=== PATIENT | male | born 1955 | race Caucasian/White ===

== ENCOUNTER → 2023-01-16 09:22 | Outpatient (CLI) | payer MEDICARE, OTHER, SELFPAY ==
--- NOTE | 2023-01-16 09:24 | DI.RAD.S_ITS ---
PROCEDURE: XR LUMBAR SPINE MIN 4V INDICATIONS: LOW BACK PAIN TECHNIQUE: 5 views of the lumbar spine were acquired, including bilateral oblique views. COMPARISON: [facility], MILENA, XR LUMBAR SPINE 2 OR 3 VIEWS, 06/06/2021, 15:23. [facility], MILENA, L-SPINE MINIMUM 4 VIEWS, 10/07/2012, 16:36. FINDINGS: Bones: 5 nonrib-bearing vertebrae are present. There is normal bony alignment. There is multilevel facet arthropathy, worse at L4-5 and L5-S1. Multilevel disc height loss with degenerative endplate changes and spurring is present. Most pronounced at L5-S1 No vertebral body compression fractures. No suspicious bony lesions. Soft tissues: Overlying bowel gas pattern is normal. No suspicious soft tissue calcifications. Oblique images: No definite pars defects. IMPRESSION: Multilevel degenerative changes of the lumbar spine. Dictated by: Mani Granados M.D. on 01/16/2023 at 10:51 Approved by: Mani Granados M.D. on 01/16/2023 at 10:53
--- NOTE | 2023-01-16 09:24 | DI.RAD.S_ITS ---
PROCEDURE: XR CERVICAL SPINE 4V OR 5V INDICATIONS: NECK PAIN TECHNIQUE: 5 views of the cervical spine acquired. COMPARISON: None. FINDINGS: Bones: No fractures or dislocations to the C6 level. The lateral masses of C1 are intact on the odontoid view. There are multilevel degenerative changes of the cervical spine with facet and uncovertebral arthropathy, disc height loss with degenerative endplate changes and spurring. Oblique images demonstrate osseous foraminal stenosis, most pronounced within the left mid to upper cervical spine. Soft tissues: No prevertebral soft tissue swelling. IMPRESSION: Multilevel degenerative changes of the cervical spine with osseous neural foraminal stenosis. Dictated by: Mani Granados M.D. on 01/16/2023 at 10:49 Approved by: Mani Granados M.D. on 01/16/2023 at 10:51
== END ==
PROVIDERS: PCP Internal Medicine; Referring Provider Anesthesiology; Visit Provider Anesthesiology
DX: M54.2 Cervicalgia (principal); M54.50 Low back pain, unspecified; M48.02 Spinal stenosis, cervical region; M47.812 Spondylosis without myelopathy or radiculopathy, cervical region; Z68.33 Body mass index [BMI] 33.0-33.9, adult
CPT/HCPCS: 72050; 72110; 99214

== ENCOUNTER → 2023-02-25 14:15 | Outpatient (CLI) | payer MEDICARE, OTHER, SELFPAY ==
--- NOTE | 2023-02-25 14:16 | DI.RAD.S_ITS ---
PROCEDURE: XR SHOULDER LT MIN 2V INDICATIONS: Shoulder pain TECHNIQUE: 3 views of the shoulder were acquired. COMPARISON: [facility], CR, XR SHOULDER MIN 2VW LT, 11/22/2016, 11:54. FINDINGS: Bones: There is no evidence for acute fracture or dislocation involving the left shoulder. There is moderate to severe AC and glenohumeral joint degenerative change present. There are 2 small loose bodies lateral to the humeral head. Adjacent soft tissues are otherwise unremarkable. IMPRESSION: 1. No evidence for acute osseous abnormality involving the left shoulder. 2. Moderate to severe AC joint degenerative change. 3. Moderate to severe glenohumeral joint degenerative change. 4. Two small loose bodies lateral to the humeral head. Dictated by: Mikel Ladd M.D. on 02/25/2023 at 15:00 Approved by: Mikel Ladd M.D. on 02/25/2023 at 15:04
--- NOTE | 2023-02-25 14:16 | DI.RAD.S_ITS ---
PROCEDURE: XR SHOULDER RT MIN 2V INDICATIONS: Shoulder pain TECHNIQUE: 3 views of the shoulder were acquired. COMPARISON: None. FINDINGS: Bones: No fractures or dislocations. No suspicious bony lesions. Visualized ribs appear intact. There is moderate to severe AC and glenohumeral joint degenerative change. Soft tissues: No suspicious soft tissue calcifications. IMPRESSION: 1. No evidence for acute osseous abnormality involving the right shoulder. 2. Moderate to severe AC joint degenerative change. 3. Moderate to severe glenohumeral joint degenerative change. 4. Small 1-2 mm loose body within the shoulder joint. Dictated by: Mikel Ladd M.D. on 02/25/2023 at 15:04 Approved by: Mikel Ladd M.D. on 02/25/2023 at 15:06
== END ==
PROVIDERS: PCP Internal Medicine; Referring Provider Anesthesiology; Visit Provider Anesthesiology
DX: M24.012 Loose body in left shoulder (principal); M24.011 Loose body in right shoulder; M25.511 Pain in right shoulder; M25.512 Pain in left shoulder; M47.812 Spondylosis without myelopathy or radiculopathy, cervical region; M54.2 Cervicalgia; G89.29 Other chronic pain
CPT/HCPCS: 73030; 99213

== ENCOUNTER 2023-03-13 14:19 | Outpatient (CLI) | payer MEDICARE, OTHER, SELFPAY ==
[2023-03-13] VITALS (8 sets, daily range): BP systolic 119–167; BP diastolic 76–94; PULSE 66–81; RESP 14–20; TEMP 36.6; O2SAT 97–100
--- NOTE | 2023-03-13 15:00 | DI.RAD.S_ITS ---
PROCEDURE: PAIN C/T FACET INJ/BLK 1ST L INDICATIONS: RADICULOPATHY COMPARISON: None. FINDINGS: Fluoroscopic spot filming was performed to verify placement of spinal needles at the left C3, C4 and C5 level(s), as labeled on the films. Appropriate location(s) of the needle tip(s) was confirmed by injection of iodinated contrast. IMPRESSION: Intra procedural examination demonstrating appropriate positions of the needles. Dictated by: Mani Granados M.D. on 03/13/2023 at 16:52 Approved by: Mani Granados M.D. on 03/13/2023 at 16:52
[2023-03-13] MEDS: MIDAZOLAM 2 MG/2 ML VIAL IV (15:01)
[2023-03-13] MEDS: BUPIVACAINE 0.5% (PF) 10 ML VIAL 5 ML INJ (15:04)
[2023-03-13] MEDS: iopamidoL 15 ML VIAL 3 ML INJ (15:05)
--- NOTE | 2023-03-13 16:42 | P.PCN_ITS ---
Date/Time/Diagnoses Date of procedure: 03/13/23 Time of procedure: 14:30 Procedure Notes Physician: Brandon Mcarthur Total Fluoroscopy time (seconds): 27 Total sedation minutes: 15 Procedure in detail & Post-procedure care: Left C3, 4, 5 Cervical Medial Branch Blocks Indications: Shola is presenting for treatment of cervical spondylosis with cervical pain. Procedure originally scheduled for right C3, 4, 5. Upon presentation today, patient notes left-sided pain is much more severe and requested to proceed with a left instead of a right procedure. Preoperative diagnosis: Cervical spondylosis Postoperative diagnosis: Same Pre-procedure History: Patient demonstrates today moderate to severe non- radicular neck pain without neurologic deficit aggravated by hyperextension yes Neck pain greater than arm pain? yes Patient today has tenderness over the suspected joint(s) yes History of post-traumatic injury? no Hypertrophic arthropathy yes Neck pain associated with suspected motion segment instability, hypermobility or pseudoarthrosis no Focused Examination: Ax3 Mood and affect are normal Vital Signs: VSS ASA: 2 Consent: Following review of allergies and potential side effects/complications, including, but not necessarily limited to, infection, allergic reaction, local tissue breakdown, stroke, temporary or permanent nerve injury, paralysis, and possible , the patient indicated that they understood and agreed to proceed.? An informed consent document was signed by the patient, witnessed by a nurse and placed in the patient's chart.? Additionally, other treatment options including medications and physical therapy were reviewed with the patient. All questions were answered. Site was then marked. Anesthesia: After review of previous anesthetic history and IV conscious sedation, the patient was deemed safe to proceed with today's procedure with IV conscious sedation. IV sedation was accomplished with midazolam 2 mg administered by the RN after order by Dr. Mcarthur. Sedation was titrated to patient comfort during the course of the procedure. Patient remained responsive to all verbal commands. Position: Prone Monitoring: NIBP, Pulse oximetry, 3 lead EKG Needle used: 22G 3.5 inch spinal needle Contrast: Isovue 300M Injectate: 0.5% bupivacaine 0.5 mL per site Procedure: The patient was brought into the procedure room and positioned into the prone position. Skin was prepped with a Chloraprep solution, allowed to air dry, and then draped in sterile fashion.? The left C3, 4, 5 facet joints were visually identified with fluoroscopy. Lidocaine 1% was used to anesthetize the skin over each target destination with a 25ga needle. A 22 ga, 3.5 inch spinal needle was advanced to the location of the medial branch at the waist of the articular pillar using intermittent fluoroscopy in the AP view. Isovue 300M contrast 0.2ml was injected at each level outlining the borders for each level in the AP/lateral views and confirmed in the foraminal view. There was no evidence of vascular or intrathecal uptake. The above injectate was slowly injected at each target destination. At the end of the procedure the needles were withdrawn and Band-Aids were applied for a dressing. Post Procedure: Patient was taken to the recovery and monitored. The patient was provided a Pain Log to continue to record the patient's response to the target- specific procedure prior to the patient's follow-up visit with the referring physician. Patient was stable upon discharge. Detailed post procedure instructions were provided. Patient was asked to call in the event of worsening pain, fever, weakness, numbness or bladder or bowel incontinence. Based on the medial branches blocked today, if the patient meets insurance criteria for radiofrequency, the treatment should result in the denervation of the left C3-4 and C4-5 facet joint nerves. We would expect to denervate a total of 2 facets during the radiofrequency ablation. Complications: None
== END 2023-03-13 15:39 | disposition home or self-care (01) ==
PROVIDERS: PCP Internal Medicine; Referring Provider Anesthesiology; Visit Provider Anesthesiology
DX: M47.812 Spondylosis without myelopathy or radiculopathy, cervical region (principal)
CPT/HCPCS: 64490; 64491; 99152; J2250

== ENCOUNTER 2023-04-17 12:29 | Outpatient (CLI) | payer MEDICARE, OTHER, SELFPAY ==
[2023-04-17] VITALS (8 sets, daily range): BP systolic 134–154; BP diastolic 77–105; PULSE 61–69; RESP 14–22; TEMP 36.4; O2SAT 98–100
--- NOTE | 2023-04-17 13:30 | DI.RAD.S_ITS ---
PROCEDURE: PAIN C/T FACET INJ/BLK 1ST L INDICATIONS: SPONDYLOSIS COMPARISON: [facility], , PAIN C/T FACET INJ/BLK 1ST L, 03/13/2023, 16:02. FINDINGS: Fluoroscopic spot filming was performed to verify placement of spinal needles at the left C3, C4 and C5 level(s), as labeled on the films. Appropriate location(s) of the needle tip(s) was confirmed by injection of iodinated contrast. IMPRESSION: Intra procedural examination demonstrating appropriate positions of the needles. Dictated by: Mani Granados M.D. on 04/17/2023 at 14:33 Approved by: Mani Granados M.D. on 04/17/2023 at 14:33
[2023-04-17] MEDS: MIDAZOLAM 2 MG/2 ML VIAL IV (13:35)
[2023-04-17] MEDS: iopamidoL 15 ML VIAL 3 ML INJ (13:41)
[2023-04-17] MEDS: LIDOCAINE 2% INJ MDV 20ML 5 ML INJ (13:41)
--- NOTE | 2023-04-17 15:25 | P.PCN_ITS ---
Date/Time/Diagnoses Date of procedure: 04/17/23 Time of procedure: 13:30 Procedure Notes Physician: Brandon Mcarthur Total Fluoroscopy time (seconds): 25 Total sedation minutes: 18 Procedure in detail & Post-procedure care: Left C3, 4, 5 Cervical Medial Branch Blocks Indications: Shola is presenting for treatment of cervical spondylosis with cervical pain. Preoperative diagnosis: Cervical spondylosis Postoperative diagnosis: Same Pre-procedure History: Patient demonstrates today moderate to severe non- radicular neck pain without neurologic deficit aggravated by hyperextension yes Neck pain greater than arm pain? F yes Patient today has tenderness over the suspected joint(s) yes History of post-traumatic injury? no Hypertrophic arthropathy F yes Neck pain associated with suspected motion segment instability, hypermobility or pseudoarthrosis no Focused Examination: Ax3 Mood and affect are normal Vital Signs: VSS ASA: 2 Consent: Following review of allergies and potential side effects/complications, including, but not necessarily limited to, infection, allergic reaction, local tissue breakdown, stroke, temporary or permanent nerve injury, paralysis, and possible , the patient indicated that they understood and agreed to proceed.? An informed consent document was signed by the patient, witnessed by a nurse and placed in the patient's chart.? Additionally, other treatment options including medications and physical therapy were reviewed with the patient. All questions were answered. Site was then marked. Anesthesia: After review of previous anesthetic history and IV conscious sedation, the patient was deemed safe to proceed with today's procedure with IV conscious sedation. IV sedation was accomplished with midazolam 2 mg administered by the RN after order by Dr. Mcarthur. Sedation was titrated to patient comfort during the course of the procedure. Patient remained responsive to all verbal commands. Position: Prone Monitoring: NIBP, Pulse oximetry, 3 lead EKG Needle used: 22G 3.5 inch spinal needle Contrast: Isovue 300M Injectate: 2% lidocaine 0.5 mL per site Procedure: The patient was brought into the procedure room and positioned into the prone position. Skin was prepped with a Chloraprep solution, allowed to air dry, and then draped in sterile fashion.? The left C3, 4, 5 facet joints were visually identified with fluoroscopy. Lidocaine 1% was used to anesthetize the skin over each target destination with a 25ga needle. A 22 ga, 3.5 inch spinal needle was advanced to the location of the medial branch at the waist of the articular pillar using intermittent fluoroscopy in the AP view. Isovue 300M contrast 0.2ml was injected at each level outlining the borders for each level in the AP/lateral views and confirmed in the foraminal view. There was no evidence of vascular or intrathecal uptake. The above injectate was slowly injected at each target destination. At the end of the procedure the needles were withdrawn and Band-Aids were applied for a dressing. Post Procedure: Patient was taken to the recovery and monitored. The patient was provided a Pain Log to continue to record the patient's response to the target- specific procedure prior to the patient's follow-up visit with the referring physician. Patient was stable upon discharge. Detailed post procedure instructions were provided. Patient was asked to call in the event of worsening pain, fever, weakness, numbness or bladder or bowel incontinence. Based on the medial branches blocked today, if the patient meets insurance criteria for radiofrequency, the treatment should result in the denervation of the left C3-4 and C4-5 facet joint nerves. We would expect to denervate a total of 2 facets during the radiofrequency ablation. Complications: None
== END 2023-04-17 14:10 | disposition home or self-care (01) ==
LOC: RAD 12:30
PROVIDERS: PCP Internal Medicine; Referring Provider Anesthesiology; Visit Provider Anesthesiology
DX: M47.812 Spondylosis without myelopathy or radiculopathy, cervical region (principal)
CPT/HCPCS: 64490; 64491; 99152; J2250

== ENCOUNTER 2023-07-10 09:23 | Emergency (ER) | payer MEDICARE, OTHER, SELFPAY ==
[2023-07-10] VITALS (10 sets, daily range): BP systolic 124–157; BP diastolic 76–95; PULSE 73–143; RESP 13–22; TEMP 36.7; O2SAT 96–98; BMI 15.2
--- NOTE | 2023-07-10 09:29 | ED_ITS ---
HPI - General Adult General Chief complaint: Arrhythmia/Palpitations Stated complaint: High HR Time Seen by Provider: 07/10/23 09:28 History of Present Illness HPI narrative: 67-year-old male presents for rapid heart rate. Patient was here at [facility] to get an injection for neck pain and his vitals were significant for a heart rate of 140 beats per minute. The injection was paused and he was sent to the ER for evaluation. Patient states that he has had intermittent shortness of breath for ?years? but has not seen his primary care doctor for this issue. Reports a ?heart attack? 25 years ago without stents placed. Patient right now denies any symptoms other than his chronic neck pain Related Data Home Medications Medication Instructions Recorded Confirmed amlodipine 10 mg tablet 10 mg PO DAILY 01/16/23 07/10/23 duloxetine 30 mg capsule,delayed 30 mg PO DAILY 01/16/23 07/10/23 release pantoprazole 40 mg tablet,delayed 40 mg PO DAILY 01/16/23 07/10/23 release pregabalin 150 mg capsule 150 mg PO BID 01/16/23 07/10/23 diclofenac sodium 75 mg 75 mg PO BID 04/22/23 07/10/23 tablet,delayed release Previous Rx's Medication Instructions Recorded metoprolol succinate 50 mg 50 mg PO DAILY #30 tabs 07/10/23 tablet,extended release 24 hr Allergies Allergy/AdvReac Type Severity Reaction Status Date / Time No Known Drug Allergies Allergy Verified 07/10/23 09:29 Review of Systems Review of Systems Narrative: See HPI Patient History Medical History Cervical radiculopathy Cervical spinal stenosis Foraminal stenosis of cervical region Osteoarthritis of shoulders, bilateral Shoulder pain Cervicalgia Cervical spondylosis Social History Smoking Status: Former smoker Smoking Status: Former smoker Exam Initial Vital Signs Initial Vital Signs: Vital Signs Temperature 98.1 F 07/10/23 09:25 Pulse Rate 112 H 07/10/23 09:25 Respiratory Rate 14 07/10/23 09:25 Blood Pressure 129/87 07/10/23 09:25 Pulse Oximetry 98 07/10/23 09:25 Oxygen Delivery Method Room Air 07/10/23 09:25 Const: Awake, alert, no acute distress, nontoxic appearing Cardiac: Tachycardia, irregularly irregular RESP: unlabored, clear bilaterally, no wheezing GI: Soft, nontender, nondistended, no rebound, no guarding MSK: Atraumatic, full range of motion, pulses equal Skin: Warm, Dry, intact, no rashes Neuro: AO x3, CN II-XII grossly intact, moves all extremities Course Orders Ordered: ED Orders 07/10/23 09:28 Chest [XR chest 1V] Stat EKG-12 Lead Stat 07/10/23 09:30 CBC Auto Diff [Complete Blood Count AUTO DIFF] Stat PT [Prothrombin Time INR] Stat TSH [Thyroid Stimulating Hormone] Stat 07/10/23 10:27 BNP [NT-proBNP (BNP-Adult 18+)] Stat CMP [Comprehensive Metabolic Panel] Stat MAG [Magnesium] Stat Troponin & CK Cardiac Panel Stat Discontinued Medications Metoprolol Succinate (Metoprolol Er 50 Mg Tablet) 50 mg PO NOW ONE Stop: 07/10/23 10:11 Last Admin: 07/10/23 10:21 Dose: 50 mg Documented By: LUPE Metoprolol Tartrate (Metoprolol Tartrate 5 Mg/5 Ml Inj) 5 mg IV Q5M [facility] Stop: 07/10/23 10:26 Last Admin: 07/10/23 10:23 Dose: Not Given Documented By: Admin: 07/10/23 10:22 Dose: Not Given Documented By: Admin: 07/10/23 10:22 Dose: Not Given Documented By: LUPE Vital Signs Vital signs: Vital Signs - 8 hr 07/10/23 09:25 07/10/23 09:28 07/10/23 09:30 Temperature 98.1 F Pulse Rate 112 H 111 H 110 H Respiratory Rate 14 14 13 Blood Pressure 129/87 Pulse Oximetry 98 97 97 Oxygen Delivery Method Room Air Room Air 07/10/23 09:30 07/10/23 09:45 07/10/23 09:45 Temperature Pulse Rate 110 H Respiratory Rate 22 Blood Pressure 157/95 H 146/79 H Pulse Oximetry 98 Oxygen Delivery Method 07/10/23 10:00 07/10/23 10:00 07/10/23 10:15 Temperature Pulse Rate 143 H 113 H Respiratory Rate 15 Blood Pressure 124/76 142/83 H Pulse Oximetry 97 Oxygen Delivery Method 07/10/23 10:15 07/10/23 10:21 07/10/23 10:30 Temperature Pulse Rate 74 75 Respiratory Rate 13 Blood Pressure 142/83 H 141/88 H Pulse Oximetry 96 Oxygen Delivery Method 07/10/23 10:30 07/10/23 10:45 07/10/23 10:45 Temperature Pulse Rate 77 77 Respiratory Rate 14 18 Blood Pressure 135/82 Pulse Oximetry 97 98 Oxygen Delivery Method Room Air 07/10/23 11:18 Temperature Pulse Rate 73 Respiratory Rate Blood Pressure 135/82 Pulse Oximetry Oxygen Delivery Method Medical Decision Making Differential Diagnosis Differential Diagnosis: Atrial fibrillation, sinus tachycardia, congestive heart failure Lab Data 07/10/23 09:30 07/10/23 10:27 Labs: Lab Results 07/10/23 07/10/23 Range/Units 09:30 10:27 WBC 5.8 (4.5-11.0) X10^3/uL RBC 5.25 (4.5-5.9) X10^6/uL Hgb 15.8 (13.5-17.5) g/dL Hct 45.8 (41-53) % MCV 87.1 (80-100) fL MCH 30.1 (26-34) PG MCHC 34.6 (30-36) % RDW 13.6 (11.6-14.8) % Plt Count 263 (150-400) X10^3/uL Neut % (Auto) 62.3 (50-75) % Lymph % (Auto) 24.7 L (25-40) % Bland % (Auto) 7.0 (3-14) % Eos % (Auto) 5.6 H (2-4) % Baso % (Auto) 0.4 (0-2) % Neut # (Auto) 3600 (2451-7406) /uL Lymph # (Auto) 1400 (3713-7192) /uL Bland # (Auto) 400 (0-900) /uL Eos # (Auto) 300 (0-450) /uL Baso # (Auto) 0 (0-100) /uL PT 12.6 H (9.4-12.5) SECONDS INR 1.1 (0.9-1.3) Sodium 141 (137-145) mmol/L Potassium 4.3 (3.4-5.1) mmol/L Chloride 109 H (98-107) mmol/L Carbon Dioxide 26 (22-32) mmol/L BUN 20 (9-20) mg/dL Creatinine 0.85 (0.66-1.25) mg/dL Estimated GFR > 60 (>60) mL/min BUN/Creatinine Ratio 23.5 H (6-22) Glucose 173 H (80-110) mg/dL Calcium 9.3 (8.4-10.2) mg/dL Magnesium 2.0 (1.6-2.3) mg/dL Total Bilirubin 0.9 (0.2-1.3) mg/dL AST 49 (17-59) IU/L ALT 85 H (<50) IU/L Alkaline Phosphatase 83 (38-126) U/L Total Creatine Kinase 98 (55-170) U/L Troponin I < 0.012 (0.01-0.034) ng/mL NT-Pro-B Natriuret Pep 923 H (<125) pg/mL Total Protein 7.4 (6.3-8.2) g/dL Albumin 4.2 (3.5-5.0) g/dL Globulin 3.2 (1.7-4.1) g/dL Albumin/Globulin Ratio 1.3 (1.0-2.8) TSH 1.34 (0.47-4.68) uIU/mL Imaging Data Chest x-ray: Radiologist's Impression: PROCEDURE: XR CHEST 1V INDICATIONS: EXERTIONAL DYSPNEA, TACHYCARDIA TECHNIQUE: One view of the chest was acquired. COMPARISON: None. FINDINGS: Surgical changes and devices: None. Lungs and pleura: Lungs are clear. No pleural effusions or pneumothorax. Mediastinum: Mediastinal contours appear normal. Heart size is normal. Bones and chest wall: No suspicious bony lesions. Overlying soft tissues appear unremarkable. IMPRESSION: No acute cardiopulmonary abnormality is seen. Dictated by: Dallas Rodgers M.D. on 07/10/2023 at 10:34 Approved by: Dallas Rodgers M.D. on 07/10/2023 at 10:35 MDM Narrative Medical decision making narrative: Well-appearing patient with incidental atrial fibrillation with RVR before a procedure. Otherwise asymptomatic, patient states that he does feel short of breath from time to time but is currently denying symptoms. Not a candidate for electric cardioversion due to unknown onset of AFib. Laboratory work is reviewed, no significant abnormalities. Troponin undetectable. While in the ER patient has spontaneously converted to sinus rhythm without any interventions. Patient will still need to be on anticoagulation. We will start metoprolol to help prevent future recurrences of AFib. Initial dose given in the emergency department. Patient counseled on his diagnosis as well as the importance of following up with Cardiology and primary care. Prescription sent to pharmacy of choice. After patient discharged from the ER they went to go caustic cresylate shift superintendent her medications and were told it was going to be over 500 dollars for an Eliquis prescription. Patient's primary care doctor's office contacted and they stated that they will take care of patient's anticoagulation. Discharge Plan Departure Patient Disposition: Home Clinical Impression: Atrial fibrillation Instructions: DI for Atrial Fibrillation Activity Restrictions/Additional Instructions: You were found to be in atrial fibrillation, which is an abnormal heart rhythm here today. This puts you at risk for strokes. You will need to follow up with a front tender for further testing. In the meantime he will be started on 2 different medications, one will help your blood pressure and heart rate, the other is a blood thinner Prescriptions: New metoprolol succinate 50 mg tablet extended release 24 hr 50 mg PO DAILY Qty: 30 0RF No Action pregabalin 150 mg capsule 150 mg PO BID duloxetine 30 mg capsule,delayed release(DR/EC) 30 mg PO DAILY amlodipine 10 mg tablet 10 mg PO DAILY pantoprazole 40 mg tablet,delayed release (DR/EC) 40 mg PO DAILY diclofenac sodium 75 mg tablet,delayed release (DR/EC) 75 mg PO BID Referrals: Lissa Richmond MD [Primary Care Provider] - Stand Alone Forms: Patient Portal/API
[2023-07-10 09:46] LABS: Add Manual Diff / Slide Review NO; Basophils Absolute Auto 0 /uL (0-100); Basophils Percent Auto 0.4 % (0-2); Eosinophils Absolute Auto 300 /uL (0-450); Eosinophils Percent Auto 5.6 % (2-4); Hematocrit 45.8 % (41-53); Hemoglobin 15.8 g/dL (13.5-17.5); Lymphocytes Absolute Auto 1400 /uL (1100-4500); Lymphocytes Percent Auto 24.7 % (25-40); Mean Corpuscular HGB Conc 34.6 % (30-36); Mean Corpuscular Hemoglobin 30.1 PG (26-34); Mean Corpuscular Volume 87.1 fL (80-100); Monocytes Absolute Auto 400 /uL (0-900); Neutrophils Absolute Auto 3600 /uL (1500-7000); Neutrophils Percent Auto 62.3 % (50-75); Platelet Count 263 X10^3/uL (150-400); Red Blood Cell Count 5.25 X10^6/uL (4.5-5.9); Red Cell Distribution Width 13.6 % (11.6-14.8); White Blood Cell Count 5.8 X10^3/uL (4.5-11.0)
[2023-07-10 10:10] LABS: INR 1.1 (0.9-1.3); Prothrombin Time 12.6 SECONDS (9.4-12.5)
--- NOTE | 2023-07-10 10:19 | PC.NURSE ---
no chest pain, converted to normal sinus rhythm.
[2023-07-10] MEDS: METOPROLOL ER 50 MG TABLET PO (10:21)
[2023-07-10 10:33] LABS: Thyroid Stimulating Hormone 1.34 uIU/mL (0.47-4.68)
[2023-07-10 10:51] LABS: Alanine Aminotransferase 85 IU/L (<50); Albumin 4.2 g/dL (3.5-5.0); Albumin Globulin Ratio 1.3 (1.0-2.8); Alkaline Phosphatase 83 U/L (38-126); Aspartate Aminotransferase 49 IU/L (17-59); BUN Creatinine Ratio 23.5 (6-22); Bilirubin Total 0.9 mg/dL (0.2-1.3); Blood Urea Nitrogen 20 mg/dL (9-20); Calcium 9.3 mg/dL (8.4-10.2); Carbon Dioxide 26 mmol/L (22-32); Chloride 109 mmol/L (98-107); Creatine Kinase 98 U/L (55-170); Estimated Glomerular Filt Rate > 60 mL/min (>60); Globulin 3.2 g/dL (1.7-4.1); Glucose 173 mg/dL (80-110); Potassium 4.3 mmol/L (3.4-5.1); Sodium 141 mmol/L (137-145); Total Protein 7.4 g/dL (6.3-8.2)
[2023-07-10 11:01] LABS: HEMOLYSIS 17 (0-50)
[2023-07-10 11:02] LABS: NT-proBNP (BNP-Adult 18+) 923 pg/mL (<125); Troponin I < 0.012 ng/mL (0.01-0.034)
--- NOTE | 2023-07-10 13:39 | PC.NURSE ---
Pt's called stating that Eliquis was too expensive. After speaking w/ Dr. Woo, called Pt's primary care doc, Dr. Franco's office. Faxed records to their office, spoke with their staff who state they will address. Called back telling her to expect contact from PCP office. They also have planned follow up this Saturday.
== END 2023-07-10 11:18 | disposition home or self-care (01) ==
PROVIDERS: Emergency Provider Emergency Medicine; PCP Internal Medicine
DX: I48.91 Unspecified atrial fibrillation (principal); R06.00 Dyspnea, unspecified; I25.2 Old myocardial infarction
CPT/HCPCS: 36415; 71045; 80053; 82550; 83735; 83880; 84443; 84484; 85025; 85610; 93005; 93010; 99284

== ENCOUNTER 2024-06-23 08:54 | Outpatient (CLI) | payer MEDICARE, OTHER, SELFPAY ==
[2024-06-23] VITALS (9 sets, daily range): BP systolic 104–136; BP diastolic 59–71; PULSE 54–60; RESP 15–20; TEMP 36.1; O2SAT 98–100
[2024-06-23] MEDS: MIDAZOLAM 2 MG/2 ML VIAL IV (09:27)
[2024-06-23] MEDS: BUPIVACAINE 0.25% (PF) VIAL 2 ML INJ (09:33)
[2024-06-23] MEDS: DEXAMETHASONE 10 MG/ML VIAL 20 MG INJ (09:33)
[2024-06-23] MEDS: iopamidoL 15 ML VIAL 3 ML INJ (09:34)
--- NOTE | 2024-06-23 09:42 | P.PCN_ITS ---
Date/Time/Diagnoses Date of procedure: 06/23/24 Time of procedure: 09:42 Pre-procedure diagnosis: 1. CERVICAL STENOSIS, 2. CERVICAL HNP WITH UPPER EXTREMITY RADICULAR FEATURES Post-procedure diagnosis: same Procedure Notes Procedure: 1. FLUORSCOPICALLY GUIDED CONTRAST CONTROLLED INTERLAMINAR EPIDURAL STEROID INJECTION - C6/7 TL ELADIO Indications: Shola is referred by Dr. Richmond for treatment of Cervical HNP with Upper Extremity Paresthesias. Physician: Danny Medel Total Fluoroscopy time (seconds): 39 Total sedation minutes: 12 Complications: none Procedure in detail & Post-procedure care: FINDINGS Cervical Stenosis due to disc deterioration and nerve root irritation and nerve root irritation DESCRIPTION OF PROCEDURE Fluoroscopically guided, contrast-controlled C6/7 translaminar epidural steroid injection with conscious sedation. Following review of allergy and review of potential side effects and complications, including, but not necessarily limited to, infection, allergic reaction, local tissue breakdown, temporary as well as permanent nerve injury, stroke, paralysis, and possible , the patient indicated that patient understood and agreed to proceed. An informed consent document was signed by the patient, witnessed by a nurse, and placed in the patient's chart. Additionally, other treatment options including modalities, medications, and physical therapy were reviewed with the patient. After review of previous anaesthesic history and IV conscious sedation the patient was deemed safe to proceed with today?s procedure with IV conscious se dation as ASA class II designation. Safety time-out was performed to confirm patient ID, procedure to be performed and site of procedure. IV sedation was accomplished with a combination of 2mg of Versed administered by the RN after DO order, titrated to patient comfort during the course of the procedure while the patient remained responsive to all verbal commands. In the prone position, following sterile prep and drape of the cervical region, the C6/7 translaminar space was identified fluoroscopically. The skin was anesthetized via a 25-gauge 1.5-inch needle with 1% lidocaine solution. At this point, a 25-gauge, 2.5-inch short bevel spinal needle was atraumatically introduced and advanced under fluoroscopic guidance into epidural space at the C6/7 translaminar space. Depth was confirmed on lateral view. Radiological data, including multiple fluoroscopic views of the cervical spine, reveal a spinal needle at the C6/7 translaminar space. Lateral views then show placement of the needle in the epidural space. Subsequent views show contrast material flowing superiorly and inferiorly in the epidural space. DSA fluoroscopy with live contrast injection, once again, confirmed no vascular or intrathecal uptake. At this point, using loss of resistance technique with saline and air, the epidural space was entered. Following negative aspiration, injection of approximately 1.5 cc of Isovue-200 with live fluoroscopy in the AP view confirmed epidural flow in the epidural space without vascular or intrathecal uptake observed. Subsequently, a test dose of 1 cc of 1% lidocaine solution was injected and patient was observed for two minutes without signs or symptoms of complications, including abdominal pain, shortness of breath, bilateral upper or lower extremity weakness, nausea and vomiting, prior to steroid injection. At this point, 2cc or 20mg of dexamethasone was then injected without incident. The patient tolerated the procedure well without signs or symptoms of c omplications prior to being transferred to the recovery area for further monitoring, The patient was then transferred to the recovery area where they were observed for an appropriate period of time after the injection. The patient reported a VAS score of 6 prior to the procedure and a post-procedure VAS of 0. POST OP INSTRUCTIONS The patient was provided a Pain Log to continue to record their response to the target-specific procedure prior to follow-up visit with the referring provider. Additionally, specific post-injection care instructions and a contact number to our office were provided if concerns arise regarding possible complications associated with the procedure are suspected.
== END 2024-06-23 10:05 | disposition home or self-care (01) ==
PROVIDERS: PCP Internal Medicine; Referring Provider Physical Medicine & Rehabilitation; Visit Provider Physical Medicine & Rehabilitation
DX: M48.02 Spinal stenosis, cervical region (principal); M50.123 Cervical disc disorder at C6-C7 level with radiculopathy
CPT/HCPCS: 62321; 64491; 99152; J1100; J2250; J3490